=== PATIENT | male | born 1975 | race Two or more races ===

== ENCOUNTER 2017-12-17 15:43 | Outpatient (CLI) | END 2017-12-17 16:08 | disposition home or self-care (01) ==

== ENCOUNTER 2017-12-31 14:30 | Outpatient (CLI) | END 2017-12-31 16:43 | disposition home or self-care (01) ==

== ENCOUNTER 2018-10-30 11:46 | Day surgery (SDC) | payer OTHER ==
[2018-10-29 16:45] VITALS: BMI 34.8
[~2018-10-30] VITALS: Ht 167.6 cm; Wt 94.5 kg
[2018-10-30] VITALS (19 sets, daily range): BP systolic 97–130; BP diastolic 66–86; PULSE 84–100; RESP 12–32; Ht 167.6 cm; Wt 94.5 kg
[~2018-10-30 11:46] MED LIST: ALLO300T2 PO; ATOR10TA65 PO; CEFAZOLIN 2 GM/50 ML (PMX) 50 ML IVPB ONE; COLC0.6T6 PO; ERGO500013 PO; LACTATED RINGER'S 1,000 ML IV SCH; LANT3I SC; LEFL20TA18 PO; LISI10TA2 PO; METF500T24 PO; OMEP40CA6 PO; SULF1TAB31 PO; SULI200T3 PO; [UNRECOGNIZED DRUG - CODE] PO
[2018-10-30] MEDS ORDERED: HYDR-3609 ORAL (12:14)
[2018-10-30] MEDS ORDERED: INSU100I33 SC (12:14)
[2018-10-30] MEDS ORDERED: METF850T13 ORAL (12:14)
--- NOTE | 2018-10-30 12:52 | HPN ---
Date/Time of Note Date/Time of Note DATE: 10/30/18 TIME: 12:52 Interval H&P Admission Note Pt. seen H&P reviewed: No system changes GUILLERMO SALTER October 30, 2018 12:52
[2018-10-30] MEDS ORDERED: INSULIN REGULAR, HUMAN 100 UNIT/1 ML 3ML VIAL IVP STA (13:16)
[2018-10-30] MEDS ORDERED: LIDOCAINE 1% (MPF) 30 ML INJ ONE (13:42)
[2018-10-30] MEDS ORDERED: BUPIVACAINE 0.5% (SDV) 30 ML INJ ONE (13:42)
--- NOTE | 2018-10-30 14:22 | PREAC ---
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 Past Medical History Past Medical History: Includes Cardio: HTN, Dyslipidemia Endo: Diabetes, Other (Gout) Pulm: Sleep Apnea GI: Obesity Surgery & Anesthesia Issues No known issue Meds Anticoagulation: No Beta Pura within 24 hr: No Reason Beta Pura not given: Pt. not on B-Pura Reported Medications Insulin Glargine,Hum.rec.anlog (Basaglar Kwikpen U-100) 100 Unit/1 Ml Insuln.pen, 30 UNIT SC QHS 10/30/18 Hydrocodone/Acetaminophen (Hydrocodone-Acetamin 10-325 mg) 1 Each Tablet, 1 TAB ORAL Q6 PRN for PAIN LEVEL 7-10 10/30/18 Metformin Hcl* (Metformin Hcl*) 850 Mg Tablet, 1 TAB ORAL BID 10/30/18 Sulindac* (Clinoril*) 200 Mg Tablet, 200 MG PO BID, TAB 12/17/17 Leflunomide* (Leflunomide*) 20 Mg Tablet, 20 MG PO DAILY, #30 TAB 12/17/17 Colchicine* (Colcrys*) 0.6 Mg Tablet, 0.6 MG PO BID, TAB 12/17/17 Discontinued Reported Medications Omeprazole* (Omeprazole*) 40 Mg Capsule.dr, 40 MG PO DAILY, #30 CAP 12/17/17 Allopurinol* (Allopurinol*) 300 Mg Tablet, 900 MG PO DAILY, TAB 12/17/17 Probenecid* (Probenecid*) 500 Mg Tablet, 500 MG PO BID, TAB 12/17/17 Lisinopril* (Lisinopril*) 10 Mg Tablet, 10 MG PO DAILY, #30 TAB 12/17/17 Metformin Hcl* (Metformin Hcl*) 500 Mg Tablet, 500 MG PO WITH BREAKFAST DINNE, #60 TAB 12/17/17 Atorvastatin Calcium (Atorvastatin Calcium) 10 Mg Tablet, 10 MG PO QHS, #30 TAB 12/17/17 Insulin Glargine* (Lantus*) 100 Unit/Ml Soln, 30 UNIT SC QHS, #1 VIAL 12/17/17 Ergocalciferol (Vitamin D2) (VITAMIN D2) 50,000 Unit Capsule, 93705 UNIT PO weekly, CAP 12/17/17 Sulfamethoxazole/Trimethoprim* (Bactrim Ds* Tablet) 1 Each Tablet, 1 TAB PO BID for 5 Days, #10 TAB 12/17/17 Current Medications Lactated Ringer's 1,000 ml @ 25 mls/hr Q24H IV Last administered on 10/30/18at 13:25; Admin Dose 25 MLS/HR; Start 10/30/18 at 07:00 Meds reviewed: Yes Allergies Coded Allergies: No Known Allergy (Unverified , 10/30/18) Allergies Reviewed: Yes Labs/Studies Labs Reviewed: Reviewed by anesthesiologist Result Diagram: 10/30/18 1305 10/30/18 1305 Laboratory Tests 10/30/18 13:05 test: N/A Studies: ECG (n/a), CXR (n/a) Pre-procedure Exam Last vitals Vital Signs Date Temp Pulse Resp B/P (MAP) Pulse Ox O2 O2 Flow FiO2 Time Delivery Rate 10/30/18 97.5 94 16 130/86 96 Room Air 13:39 (101) Airway: Adequate mouth opening, Adequate thyromental dist Mallampati: Mallampati III Teeth: Normal Lung: Normal Heart: Normal ASA Physical Status ASA physical status: 3 Emergency: None Planned Anesthetic General/MAC: LMA Nerve block: Brachial plexus (right) Planned Pain Management Single shot nerve block, Parenteral pain med Pre-operative Attestations Prior to commencing anesthesia and surgery, the patient was re-evaluated, there was verification of: *The patient's identity *The results of appropriate recent lab work and preoperative vital signs *The above evaluation not changing prior to induction *Anesthetic plan, risk benefits, alternative and complications discussed with patient/family; questions answered; patient/family understands, accepts and wishes to proceed. GAIL WARE MD October 30, 2018 14:22
[2018-10-30] MEDS ORDERED: MIDAZOLAM 1 MG/ML 2 ML INJ ONE (14:27)
[2018-10-30] MEDS ORDERED: PROPOFOL 20 ML ONE ×2 (14:27→14:32)
[2018-10-30] MEDS ORDERED: FENTAnyl 50 MCG/ML VIAL ONE (14:27)
[2018-10-30] MEDS ORDERED: FENTAnyl 50 MCG/ML VIAL IV PRN ×3 (14:30)
[2018-10-30] MEDS ORDERED: LABETALOL HCL 20MG INJ IV PRN (14:30)
[2018-10-30] MEDS ORDERED: OXYCODONE/ACETAMINOPHEN (5/325) TAB PO PRN ×2 (14:30)
[2018-10-30] MEDS ORDERED: METOCLOPRAMIDE 10 MG INJ IV PRN (14:30)
[2018-10-30] MEDS ORDERED: HYDROmorphONE 1 MG/5 ML IV SYRINGE IV PRN ×3 (14:30)
[2018-10-30] MEDS ORDERED: DIPHENHYDRAMINE 50 MG INJ IV PRN (14:30)
[2018-10-30] MEDS ORDERED: hydrALAzine 20 MG INJ IV PRN (14:30)
[2018-10-30] MEDS ORDERED: ONDANSETRON 4 MG INJ IV PRN (14:30)
[2018-10-30] MEDS ORDERED: MEPERIDINE 25 MG INJ IV PRN (14:30)
[2018-10-30] MEDS ORDERED: EPHEDrine 25 MG/5 ML SYG IV PRN (14:30)
[2018-10-30] MEDS ORDERED: CEFAZOLIN 1 GM INJ ONE (14:32)
[2018-10-30] MEDS ORDERED: DEXAMETHASONE 4 MG/ML 5 ML INJ ONE (14:56)
[2018-10-30] MEDS ORDERED: KETOROLAC 30 MG INJ ONE (14:56)
[2018-10-30] MEDS ORDERED: ONDANSETRON 4 MG INJ ONE (14:56)
[2018-10-30] MEDS ORDERED: METOCLOPRAMIDE 10 MG INJ ONE (14:56)
--- NOTE | 2018-10-30 15:09 | PAC ---
Date/Time of Note Date/Time of Note DATE: 10/30/18 TIME: 15:08 Post-Anesthesia Notes Post-Anesthesia Note Last documented vital signs Vital Signs Date Temp Pulse Resp B/P (MAP) Pulse Ox O2 O2 Flow FiO2 Time Delivery Rate 10/30/18 98.0 94 16 130/86 96 Room Air 15:09 (101) Activity: WNL Respiratory function: WNL Cardiovascular function: WNL Mental status: Baseline Pain reasonably controlled: Yes Hydration appropriate: Yes Nausea/Vomiting absent: Yes GAIL WARE MD October 30, 2018 15:09
--- NOTE | 2018-10-30 15:21 | OPPN ---
Date/Time of Note Date/Time of Note DATE: 10/30/18 TIME: 15:20 Operative Report Preoperative Diagnosis right wrist and forearm 2nd and third dorsal compartment tenosynovitis Postoperative Diagnosis right wrist and forearm 2nd and third dorsal compartment tenosynovitis Operation/Procedure Performed right wrist and forearm 2nd and third dorsal compartment tendon sheath incision with tenosynovectomy Surgeon see signature line wet process assistant head miller none Anesthesia: general Estimated blood loss: 0 - 10 ml's Transfusion Required none Specimen right wrist tissue for culture and pathology Grafts/Implants none Complications none GUILLERMO SALTER October 30, 2018 15:21
[2018-10-30] MEDS ORDERED: INSULIN REGULAR, HUMAN 100 UNIT/1 ML 3ML VIAL SC ONE ×2 (16:30)
--- NOTE | 2018-10-30 18:02 | OPR ---
DATE OF OPERATION: 10/30/2018 SURGEON: Guillermo Levy MD. ANESTHESIA: General plus local. PREOPERATIVE DIAGNOSES: 1. Right wrist and forearm second dorsal compartment extensor tenosynovitis. 2. Right wrist and forearm third dorsal compartment extensor tenosynovitis. POSTOPERATIVE DIAGNOSIS: 1. Right wrist and forearm second dorsal compartment extensor tenosynovitis. 2. Right wrist and forearm third dorsal compartment extensor tenosynovitis. PROCEDURE: 1. Right wrist second dorsal compartment tendon sheath incision. 2. Right wrist third dorsal compartment tendon sheath incision. 3. Right wrist second dorsal compartment extensor tenosynovectomy. 4. Right wrist third dorsal compartment extensor tenosynovectomy. OPERATIVE FINDINGS: Stenosing tenosynovitis, right wrist and forearm second and third dorsal compart ments with fraying of the extensor pollicis longus tendon. INDICATION FOR PROCEDURE: A 43-year-old male with longstanding right wrist pain and swelling, who fa iled conservative measures, elected to proceed with surgical intervention, understanding the risks an d benefits. DESCRIPTION OF PROCEDURE: The patient was seen in the preoperative area and all further questions we re answered. Again, he gave informed consent, understanding risks and benefits. He was taken to ope rative suite and placed in supine position. The patient was placed under general anesthesia and Ance f 2 grams IV given. Tourniquet was placed in the right upper extremity and right upper extremity was prepped with ChloraPrep stick and draped in usual sterile fashion. Esmarch bandage was used to exsa nguinate the extremity and tourniquet inflated to 250 mmHg. A longitudinal incision over the second and third dorsal compartments was utilized with sharp dissection carried down through skin and subcut aneous tissue. Soft tissues were cleared off of the extensor retinaculum and the third dorsal compar tment tendon sheath was incised from the base of the metacarpal to the distal 3rd of the distal radiu s. There was significant tenosynovitis within the third dorsal compartment, and after tendon sheath incision, I performed an extensive tenosynovectomy of the third dorsal compartment, removing all infl rolando tenosynovium. There was fraying of the EPL tendon, but the tendon was intact. The EPL tendon w as then retracted and I incised the second dorsal compartment longitudinally decompressing it from th e distal third of the forearm to the level of the insertion of both the ECRB and ECRL tendons. After tendon sheath incision, I identified significant tenosynovitis, which was debrided and excised using tenotomy scissors and Adson forceps. After extensive tenosynovectomy, there was no further inflamed tissue in the area and the tendons were cleaned. The wound was copiously irrigated. Skin closed wi th 5-0 nylon. Xeroform was placed in the wound followed by sterile gauze, Webril, and a short arm sp lint. Tourniquet deflated after 11 minutes. The patient was awakened from anesthesia. He was taken to operative suite in stable condition and tolerated the procedure well without complication. SPECIMENS: Right wrist and forearm tenosynovium for culture and permanent pathology. ESTIMATED BLOOD LOSS: 5 mL. COUNTS: Sponge, instrument, needle counts correct. TOURNIQUET TIME: 11 minutes. CONDITION ON DISCHARGE: Stable. The patient was given a nonrefillable 5-day prescription for pain medication for surgery today. Dictated By: GUILLERMO PUTNAM/CHICHI Conf#: [id number] DID#: [id number]
== END 2018-10-30 17:00 | disposition home or self-care (01) ==
LOC: SDS 11:46
PROVIDERS: ATTEND Orthopaedic Surgery Hand Surgery
DX: M65.831 Other synovitis and tenosynovitis, right forearm (principal); I10 Essential (primary) hypertension; E11.9 Type 2 diabetes mellitus without complications; Z79.84 Long term (current) use of oral hypoglycemic drugs; Z79.4 Long term (current) use of insulin
CPT/HCPCS: 25116; 80048; 82962; 85025; 85610; 85730; 87070; 87075; 87102; J0690; J1100; J1170; J1815; J1885; J2250; J2405; J2765; J3010; Z7512; Z7610; 88307

== ENCOUNTER 2018-11-06 17:12 | Inpatient (IN) | payer OTHER ==
[~2018-11-06] VITALS: Ht 167.6 cm; Wt 92.8 kg
[~2018-11-06 17:12] MED LIST changes: -ALLO300T2 PO; -ATOR10TA65 PO; -CEFAZOLIN 2 GM/50 ML (PMX) 50 ML IVPB ONE; -ERGO500013 PO; +HYDR-3609 ORAL; +INSU100I33 SC; -LACTATED RINGER'S 1,000 ML IV SCH; -LANT3I SC; -LISI10TA2 PO; -METF500T24 PO; +METF850T13 ORAL; -OMEP40CA6 PO; -SULF1TAB31 PO; -[UNRECOGNIZED DRUG - CODE] PO
[2018-11-06 20:00] VITALS: BP 136/88; RESP 20
[2018-11-06] MEDS ORDERED: DEXTROSE 5%-0.45% NACL 1,000 ML IV SCH (20:39)
[2018-11-06] MEDS ORDERED: DOCUSATE SODIUM 100 MG CAP PO PRN (21:00)
[2018-11-06] MEDS ORDERED: BISACODYL (EC) 5 MG TAB PO PRN (21:00)
[2018-11-06] MEDS ORDERED: ACETAMINOPHEN 325 MG TAB PO PRN (21:00)
[2018-11-06] MEDS ORDERED: ONDANSETRON 4 MG INJ IV PRN (21:00)
[2018-11-06] MEDS ORDERED: NACL 0.9% 3 ML SYG IV SCH (21:00)
[2018-11-06] MEDS ORDERED: VANCOMYCIN IV PER PHARMACY XX SCH (21:00)
[2018-11-06] MEDS ORDERED: HYDROmorphONE 0.5 MG/0.5 ML SYG IV PRN (21:00)
[2018-11-06] MEDS ORDERED: GLUCOSE GEL 15 GRAM TUBE BUCCAL PRN (21:30)
[2018-11-06] MEDS ORDERED: DEXTROSE 50% 50 ML SYRINGE IV PRN ×2 (21:30)
[2018-11-06] MEDS ORDERED: GLUCAGON 1 MG INJ IM PRN (21:30)
[2018-11-06] MEDS ORDERED: GLUCOSE GEL 15 GRAM TUBE PO PRN ×2 (21:30)
--- NOTE | 2018-11-06 21:55 | HP ---
Date/Time of Note Date/Time of Note DATE: 11/06/18 TIME: 21:55 Assessment/Plan VTE Prophylaxis SCD applied (from Ns): Yes Pharmacological prophylaxis: NA/contraindicated Pharm contraindication: low risk/ambulating Assessment/Plan Hospital Course This is a 43-year-old male being admitted to the [facility] floor for: 1. Severe sepsis: Secondary to postop right wrist and forearm infection. Patient does report improvement in his right wrist hand and finger swelling after receiving antibiotics. We will continue with broad-spectrum trauma antibiotics of vancomycin and Zosyn. Will check CBC CMP and lactic acid level. Initial lactic acid at the transfer facility was above 2. Contact the transferring facility regarding culture results. 2 postop right wrist and forearm infection: Patient has surgery for right wrist and forearm second and third dorsal compartment tenosynovitis. Patient is improving with IV antibiotics. the performing surgeon has been notified and they will consult on the patient. 3 rheumatoid arthritis: We will continue anti-inflammatories, will hold leflunomide for now until resolution of infection. 4 Diabetes mellitus: We will check a hemoglobin A1c, resume patient's home insulin sliding scale regimen and Lantus 5 gout: Resume Colcrys as indicated 6 dyslipidemia: We will check lipid panel 7. Hypertension: Continue lisinopril #8 DVT GI prophylaxis: SCDs, no GI prophylaxis indicated next Further treatment strategy will be implemented as per the clinical course Results 24hrs Laboratory Tests Test 11/06/18 20:52 Bedside Glucose 273 H HPI/ROS Admit Date/Time Admit Date/Time November 06, 2018 at 20:01 Hx of Present Illness Chief complaint: Right arm pain this is a 43-year-old male who originally presented to [facility] for evaluation of worsening right wrist pain. Patient reported that he had surgery approximately a week prior to drain fluid from his tendon. Patient had originally been diagnosed with septic arthritis in June he had been seen by orthopedics at the time with more so he was cellulitis. He was given antibiotics and anti-inflammatories. He reported at that time his symptoms had not improved so his primary care doctor and send him to orthopedics. Patient was seen by hand surgeon Dr. clemente [facility] and on 10/30/2018 patient had a right wrist and forearm 2nd and third dorsal compartment tendon sheath incision with tenosynovectomy for right wrist and forearm second and third dorsal compartment tenosynovitis. At [facility] he reported that he was having 10 out of 10 pain in his right wrist and was not getting any relief from Percocet. He denied any numbness or tingling or weakness. He reports that his fingers were swollen and dark in color when he presented to the [facility]. Patient presented to [facility] with a temperature of 98.5/pulse 108/respirations 20/BP 146/103/SPO2 90% on room air. Pertinent laboratory findings please see chart for full details: White blood cells 15.5/hemoglobin 15.9/hematocrit 44.6/count 178 Sodium 131 potassium 4.4 chloride 92 CO2 23 creatinine 0.89 BUN 12 bilirubin total 1.2 Procalcitonin less than 0.10 Lactate 2.6 X-ray of the right wrist: Osseous structures are intact. There is no acute fracture dislocation. 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 Allergies: NKDA Medications: See Aug Const: As per HPI Eyes : No pain discharge or redness or change in visual acuity ENT: No pain, sore throat, congestion, congestion, dysphagia or discharge Respiratory: No shortness of breath, cough, sputum, wheezing, or pleuritic pain Cardiovascular: No chest pain, palpitation, PND, or edema GI : no change in appetite, abdominal pain, nausea, vomiting, diarrhea, constipation, or change in the color his stool Genitourinary: No dysuria, hematuria, flank pain , discharge or CVA tenderness Musculoskeletal: As per HPI Skin: As per HPI Neuro: No headache, dizziness, syncope, seizure, focal weakness Endocrine: No polyuria, polydipsia, temperature intolerance Psych: No hallucination, depression, anxiety or suicidal ideation PMH/Family/Social Past Medical History right wrist and forearm second and third dorsal compartment tenosynovitis Rheumatoid arthritis Diabetes mellitus Gout Dyslipidemia Hypertension Medications Current Medications IV Flush (NS 3 ml) 3 ml PER PROTOCOL IV ; Start 11/06/18 at 21:00 Ondansetron HCl (Zofran Inj) 4 mg Q6H PRN IV NAUSEA/VOMITING; Start 11/06/18 at 21:00 Acetaminophen (Tylenol Tab) 650 mg Q6H PRN PO .PAIN 1-3 OR TEMP Last administered on 11/06/18at 21:22; Admin Dose 650 MG; Start 11/06/18 at 21:00 Hydromorphone HCl (Dilaudid) 0.5 mg Q4H PRN IV .SEVERE PAIN 7-10; Start 11/06/18 at 21:00 Docusate Sodium (Colace) 100 mg Q12H PRN PO .CONSTIPATION; Start 11/06/18 at 21:00 Bisacodyl (Dulcolax) 5 mg DAILY PRN PO .CONSTIPATION; Start 11/06/18 at 21:00 Vancomycin HCl (Vanco Iv Per Pharmacy) VANCOMYCIN PER PHARMACY PER PROTOCOL XX ; Start 11/06/18 at 21:00 Piperacillin Sod/ Tazobactam Sod 100 ml @ 200 mls/hr Q6 IVPB ; Start 11/06/18 at 21:00 Diagnostic Test (Pha) (Accu-Chek) 1 ea 02 XX ; Start 11/07/18 at 02:00 Insulin Aspart (Novolog Insulin Pen) NOVOLOG *MILD* ALGORITHM WITH MEALS BEDTIME SC ; Start 11/06/18 at 22:00 Miscellaneous Information 1 ea NOTE XX ; Start 11/06/18 at 21:30 Glucose (Glutose) 15 gm Q15M PRN PO DECREASED GLUCOSE; Start 11/06/18 at 21:30 Glucose (Glutose) 22.5 gm Q15M PRN PO DECREASED GLUCOSE; Start 11/06/18 at 21:30 Dextrose (D50w Syringe) 25 ml Q15M PRN IV DECREASED GLUCOSE; Start 11/06/18 at 21:30 Dextrose (D50w Syringe) 50 ml Q15M PRN IV DECREASED GLUCOSE; Start 11/06/18 at 21:30 Glucagon (Glucagen) 1 mg Q15M PRN IM DECREASED GLUCOSE; Start 11/06/18 at 21:30 Glucose (Glutose) 15 gm Q15M PRN BUCCAL DECREASED GLUCOSE; Start 11/06/18 at 21:30 Vancomycin HCl 2 gm/Sodium Chloride 500 ml @ 125 mls/hr ONCE ONCE IVPB ; Start 11/06/18 at 23:00; Stop 11/07/18 at 02:59 Vancomycin HCl 1.5 gm/Sodium Chloride 250 ml @ 83.333 mls/ hr Q12H IVPB ; Start 11/07/18 at 11:00 Coded Allergies: No Known Allergy (Unverified , 10/30/18) Past Surgical History right wrist and forearm 2nd and third dorsal compartment tendon sheath incision with tenosynovectomy Family History Significant Family History: no pertinent family hx Exam/Review of Systems Vital Signs Vitals Vital Signs Date Temp Pulse Resp B/P (MAP) Pulse Ox O2 O2 Flow FiO2 Time Delivery Rate 11/06/18 102.0 21:22 11/06/18 20 136/88 98 20:00 (104) Exam Exam General: Patient is well-developed well-nourished The patient is alert oriented -3 lying comfortably in bed. HEENT: Atraumatic, normocephalic. The pupils are equal, round and reactive. Extraocular motor are intact Neck: Supple with full range of motion. No rigidity or meningismus Chest: Nontender Lungs: Clear to auscultation bilaterally no crackles rales or wheezing Heart: Normal S1-S2, Regular rhythm and rate. No murmur, S3, or S4 Abdomen: Soft , nontender, nondistended , bowel sounds are present. No guarding no rebound tenderness , No masses or organomegaly. No costovertebral temporal angle mass Extremities: Right arm mild swelling noted on the dorsal aspect, surgical scar and sutures noted at the wrist, mild tenderness to touch, no erythema noted. Dark you on the palmar aspect around the fingers (patient reports swelling and color of the fingers have improved since starting treatment) Neurologic: Normal mental status, speech normal, cranial nerves II through XII are intact, motor and sensory are intact, no focal weakness TRISTIN GUERRA November 06, 2018 21:55
[2018-11-06] MEDS: PIPER-TAZO 3.375 GM IV (PMX) 100 ML IVPB SCH (22:23)
[2018-11-06 22:26] VITALS: Ht 167.6 cm; Wt 92.8 kg
[2018-11-06] MEDS ORDERED: VANCOMYCIN HCL 2 GM in SOD CHLORIDE 0.9% 500 ML IVPB ONE (23:00)
[2018-11-06] MEDS: INSULIN ASPART [NOVOLOG] 3 ML PEN SC SCH (23:47)
[2018-11-07] MEDS ORDERED: METF-480 PO (00:17)
[2018-11-07 02:05] VITALS: BP 139/85; RESP 18
[2018-11-07] MEDS ORDERED: LISI10TA2 PO (02:21)
[2018-11-07] MEDS: ACCU-CHEK XX SCH (02:30)
[2018-11-07] MEDS: PIPER-TAZO 3.375 GM IV (PMX) 100 ML IVPB SCH ×4 (02:36→17:39)
[2018-11-07] MEDS ORDERED: INSULIN ASPART [NOVOLOG] 3 ML PEN SC ONE (03:00)
[2018-11-07] MEDS ORDERED: INSULIN GLARGINE [LANTus] (100 UNITS/ML) SYG SC ONE (04:30)
[2018-11-07] MEDS ORDERED: ACCU-CHEK XX ONE (05:00)
[2018-11-07] MEDS: INSULIN ASPART [NOVOLOG] 3 ML PEN SC SCH ×5 (08:17→21:17)
[2018-11-07] MEDS: LISINOPRIL 10 MG TAB PO SCH (08:19)
[2018-11-07] MEDS: SULINDAC 200 MG TAB PO SCH ×2 (09:26→21:14)
[2018-11-07 10:41] VITALS: BP 138/76; PULSE 95; RESP 18
[2018-11-07] MEDS: VANCOMYCIN HCL 1.5 GM in SOD CHLORIDE 0.9% 250 ML IVPB SCH ×3 (11:00→23:52)
[2018-11-07 14:30] VITALS: BP 115/68; PULSE 103; RESP 18
--- NOTE | 2018-11-07 15:02 | PN ---
Date/Time of Note Date/Time of Note DATE: 11/07/18 TIME: 14:56 Assessment/Plan VTE Prophylaxis Risk score (from Ns)>0 risk: 4 SCD applied (from Ns): Yes Pharmacological prophylaxis: NA/contraindicated Pharm contraindication: low risk/ambulating Lines/Catheters IV Catheter Type (from [facility]): [facility] Assessment/Plan Hospital Course 1. Severe sepsis: Secondary to postop right wrist and forearm infection Patient does report improvement in his right wrist hand and finger swelling after receiving antibiotics. Continue broad-spectrum trauma antibiotics of vancomycin and Zosyn, Initial lactic acid at the transfer facility was above Contact the transferring facility regarding culture results. 2. Postop right wrist and forearm infection: Patient has surgery for right wrist and forearm second and third dorsal compartment tenosynovitis. Patient is improving with IV antibiotics. the performing surgeon has been notified and they will consult on the patient ID consultation also obtained 3. Rheumatoid arthritis: We will continue anti-inflammatories, will hold leflu nomide for now until resolution of infection. 4 Diabetes mellitus-OOC A1c 12.8 Continue Lantus and sliding scale, add NovoLog 10 units with meals coding educator consultation 5. Gout Resume Colcrys as indicated 6. Dyslipidemia Lipid panel within normal limits except for triglyceride which is elevated 7. Hypertension Continue lisinopril DVT GI prophylaxis: SCDs DC planning: Follow-up on ID and surgery recommendations, continue IV antibiotics Result Diagram: 11/07/18 0602 11/07/18 0602 Results 24hrs Laboratory Tests Test 11/06/18 20:52 11/06/18 21:32 11/06/18 23:44 11/07/18 02:30 Bedside Glucose 273 H 334 H 300 H White Blood Count 18.0 #H Red Blood Count 5.13 Hemoglobin 14.3 Hematocrit 40.9 L Mean Corpuscular 79.7 L Volume Mean Corpuscular 27.9 L Hemoglobin Mean Corpuscular 35.0 Hemoglobin Concent Red Cell 12.5 Distribution Width Platelet Count 193 Mean Platelet Volume 10.9 H Immature 1.100 H Granulocytes % Neutrophils % Segmented 84 H Neutrophils % (Manual) Band Neutrophils % 3 (Manual) Lymphocytes % Lymphocytes % 7 L (Manual) Reactive Lymphocytes 1 H % (Manual) Monocytes % Monocytes % (Manual) 4 Eosinophils % Eosinophils % 1 (Manual) Basophils % Nucleated Red Blood 0.0 Cells % Immature 0.190 H Granulocytes # Neutrophils # Neutrophils # 15.2 H (Manual) Band Neutrophils # 0.5 Lymphocytes (Manual) 1.2 Lymphocytes # Reactive Lymphocytes 0.1 H # Monocytes # Monocytes # (Manual) 0.7 Eosinophils # Basophils # Nucleated Red Blood Cells # Platelet Estimate NORMAL Platelet Morphology @See below Comment Polychromasia 1+ Anisocytosis 3+ Microcytosis 3+ Sodium Level 133 L Potassium Level 4.7 Chloride Level 101 Carbon Dioxide Level 21 Anion Gap 11 Blood Urea Nitrogen 14 Creatinine 0.92 Est Glomerular > 60 Filtrat Rate mL/min Glucose Level 312 H Lactic Acid Level 1.2 Calcium Level 9.1 Total Bilirubin 1.6 H Direct Bilirubin 0.00 Indirect Bilirubin 1.6 H Aspartate Amino 22 Transf (AST/SGOT) Alanine 18 Aminotransferase (AL T/SGPT) Alkaline Phosphatase 79 Total Protein 6.6 Albumin 4.0 Globulin 2.60 Albumin/Globulin 1.53 Ratio Test 11/07/18 05:20 11/07/18 06:02 11/07/18 08:12 11/07/18 11:58 Bedside Glucose 305 H 281 H 338 H White Blood Count 11.1 #H Red Blood Count 4.97 Hemoglobin 14.0 Hematocrit 40.0 L Mean Corpuscular 80.5 L Volume Mean Corpuscular 28.2 L Hemoglobin Mean Corpuscular 35.0 Hemoglobin Concent Red Cell 12.6 Distribution Width Platelet Count 186 Mean Platelet Volume 10.7 H Immature 0.800 H Granulocytes % Neutrophils % 69.4 Lymphocytes % 15.5 Monocytes % 12.6 H Eosinophils % 1.2 Basophils % 0.5 Nucleated Red Blood 0.0 Cells % Immature 0.090 H Granulocytes # Neutrophils # 7.7 H Lymphocytes # 1.7 Monocytes # 1.4 H Eosinophils # 0.1 Basophils # 0.1 Nucleated Red Blood 0.0 Cells # Prothrombin Time 14.0 Prothrombin Time 1.1 Ratio INR International 1.07 Normalized Ratio Activated 36.1 H Partial Thromboplast Time Sodium Level 135 Potassium Level 4.3 Chloride Level 102 Carbon Dioxide Level 25 Anion Gap 8 Blood Urea Nitrogen 15 Creatinine 0.89 Est Glomerular > 60 Filtrat Rate mL/min Glucose Level 309 H Hemoglobin A1c 12.8 H Calcium Level 9.0 Magnesium Level 1.9 Total Bilirubin 1.6 H Direct Bilirubin 0.00 Indirect Bilirubin 1.6 H Aspartate Amino 19 Transf (AST/SGOT) Alanine 18 Aminotransferase (AL T/SGPT) Alkaline Phosphatase 68 Total Protein 6.7 Albumin 3.8 Globulin 2.90 Albumin/Globulin 1.31 Ratio Triglycerides Level 319 H Cholesterol Level 155 LDL Cholesterol, 60 Calculated HDL Cholesterol 31 Cholesterol/HDL 5.0 Ratio Thyroid Stimulating 1.070 Hormone (TSH) Subjective 24 Hr Interval Summary Constitutional: no complaints Exam/Review of Systems Exam Vitals Vital Signs Date Temp Pulse Resp B/P (MAP) Pulse Ox O2 O2 Flow FiO2 Time Delivery Rate 11/07/18 98.5 103 18 115/68 98 Room Air 14:30 (84) Intake and Output 11/06/18 11/06/18 11/07/18 1515:00 23:00 07:00 IntakeIntake Total 800 ml BalanceBalance 800 ml Constitutional: alert, oriented Respiratory: clear to auscultation Cardiovascular: regular rate and rhythm Gastrointestinal: soft; No distended Musculoskeletal: No nl extremities to inspection Results Results 24hrs Laboratory Tests Test 11/06/18 20:52 11/06/18 21:32 11/06/18 23:44 11/07/18 02:30 Bedside Glucose 273 H 334 H 300 H White Blood Count 18.0 #H Red Blood Count 5.13 Hemoglobin 14.3 Hematocrit 40.9 L Mean Corpuscular 79.7 L Volume Mean Corpuscular 27.9 L Hemoglobin Mean Corpuscular 35.0 Hemoglobin Concent Red Cell 12.5 Distribution Width Platelet Count 193 Mean Platelet Volume 10.9 H Immature 1.100 H Granulocytes % Neutrophils % Segmented 84 H Neutrophils % (Manual) Band Neutrophils % 3 (Manual) Lymphocytes % Lymphocytes % 7 L (Manual) Reactive Lymphocytes 1 H % (Manual) Monocytes % Monocytes % (Manual) 4 Eosinophils % Eosinophils % 1 (Manual) Basophils % Nucleated Red Blood 0.0 Cells % Immature 0.190 H Granulocytes # Neutrophils # Neutrophils # 15.2 H (Manual) Band Neutrophils # 0.5 Lymphocytes (Manual) 1.2 Lymphocytes # Reactive Lymphocytes 0.1 H # Monocytes # Monocytes # (Manual) 0.7 Eosinophils # Basophils # Nucleated Red Blood Cells # Platelet Estimate NORMAL Platelet Morphology @See below Comment Polychromasia 1+ Anisocytosis 3+ Microcytosis 3+ Sodium Level 133 L Potassium Level 4.7 Chloride Level 101 Carbon Dioxide Level 21 Anion Gap 11 Blood Urea Nitrogen 14 Creatinine 0.92 Est Glomerular > 60 Filtrat Rate mL/min Glucose Level 312 H Lactic Acid Level 1.2 Calcium Level 9.1 Total Bilirubin 1.6 H Direct Bilirubin 0.00 Indirect Bilirubin 1.6 H Aspartate Amino 22 Transf (AST/SGOT) Alanine 18 Aminotransferase (AL T/SGPT) Alkaline Phosphatase 79 Total Protein 6.6 Albumin 4.0 Globulin 2.60 Albumin/Globulin 1.53 Ratio Test 11/07/18 05:20 11/07/18 06:02 11/07/18 08:12 11/07/18 11:58 Bedside Glucose 305 H 281 H 338 H White Blood Count 11.1 #H Red Blood Count 4.97 Hemoglobin 14.0 Hematocrit 40.0 L Mean Corpuscular 80.5 L Volume Mean Corpuscular 28.2 L Hemoglobin Mean Corpuscular 35.0 Hemoglobin Concent Red Cell 12.6 Distribution Width Platelet Count 186 Mean Platelet Volume 10.7 H Immature 0.800 H Granulocytes % Neutrophils % 69.4 Lymphocytes % 15.5 Monocytes % 12.6 H Eosinophils % 1.2 Basophils % 0.5 Nucleated Red Blood 0.0 Cells % Immature 0.090 H Granulocytes # Neutrophils # 7.7 H Lymphocytes # 1.7 Monocytes # 1.4 H Eosinophils # 0.1 Basophils # 0.1 Nucleated Red Blood 0.0 Cells # Prothrombin Time 14.0 Prothrombin Time 1.1 Ratio INR International 1.07 Normalized Ratio Activated 36.1 H Partial Thromboplast Time Sodium Level 135 Potassium Level 4.3 Chloride Level 102 Carbon Dioxide Level 25 Anion Gap 8 Blood Urea Nitrogen 15 Creatinine 0.89 Est Glomerular > 60 Filtrat Rate mL/min Glucose Level 309 H Hemoglobin A1c 12.8 H Calcium Level 9.0 Magnesium Level 1.9 Total Bilirubin 1.6 H Direct Bilirubin 0.00 Indirect Bilirubin 1.6 H Aspartate Amino 19 Transf (AST/SGOT) Alanine 18 Aminotransferase (AL T/SGPT) Alkaline Phosphatase 68 Total Protein 6.7 Albumin 3.8 Globulin 2.90 Albumin/Globulin 1.31 Ratio Triglycerides Level 319 H Cholesterol Level 155 LDL Cholesterol, 60 Calculated HDL Cholesterol 31 Cholesterol/HDL 5.0 Ratio Thyroid Stimulating 1.070 Hormone (TSH) Medications Medication Current Medications IV Flush (NS 3 ml) 3 ml PER PROTOCOL IV ; Start 11/06/18 at 21:00 Ondansetron HCl (Zofran Inj) 4 mg Q6H PRN IV NAUSEA/VOMITING; Start 11/06/18 at 21:00 Acetaminophen (Tylenol Tab) 650 mg Q6H PRN PO .PAIN 1-3 OR TEMP Last adm inistered on 11/06/18at 21:22; Admin Dose 650 MG; Start 11/06/18 at 21:00 Hydromorphone HCl (Dilaudid) 0.5 mg Q4H PRN IV .SEVERE PAIN 7-10; Start 11/06/18 at 21:00 Docusate Sodium (Colace) 100 mg Q12H PRN PO .CONSTIPATION; Start 11/06/18 at 21:00 Bisacodyl (Dulcolax) 5 mg DAILY PRN PO .CONSTIPATION; Start 11/06/18 at 21:00 Vancomycin HCl (Vanco Iv Per Pharmacy) VANCOMYCIN PER PHARMACY PER PROTOCOL XX ; Start 11/06/18 at 21:00 Piperacillin Sod/ Tazobactam Sod 100 ml @ 200 mls/hr Q6 IVPB Last administered on 11/07/18at 14:28; Admin Dose 200 MLS/HR; Start 11/06/18 at 21:00 Diagnostic Test (Pha) (Accu-Chek) 1 ea 02 XX Last administered on 11/07/18at 02:30; Admin Dose 1 EA; Start 11/07/18 at 02:00 Insulin Aspart (Novolog Insulin Pen) NOVOLOG *MILD* ALGORITHM WITH MEALS BEDTIME SC Last administered on 11/07/18at 12:00; Admin Dose 5 UNIT; Start 11/06/18 at 22:00 Miscellaneous Information 1 ea NOTE XX ; Start 11/06/18 at 21:30 Glucose (Glutose) 15 gm Q15M PRN PO DECREASED GLUCOSE; Start 11/06/18 at 21:30 Glucose (Glutose) 22.5 gm Q15M PRN PO DECREASED GLUCOSE; Start 11/06/18 at 21:30 Dextrose (D50w Syringe) 25 ml Q15M PRN IV DECREASED GLUCOSE; Start 11/06/18 at 21:30 Dextrose (D50w Syringe) 50 ml Q15M PRN IV DECREASED GLUCOSE; Start 11/06/18 at 21:30 Glucagon (Glucagen) 1 mg Q15M PRN IM DECREASED GLUCOSE; Start 11/06/18 at 21:30 Glucose (Glutose) 15 gm Q15M PRN BUCCAL DECREASED GLUCOSE; Start 11/06/18 at 21:30 Vancomycin HCl 1.5 gm/Sodium Chloride 250 ml @ 83.333 mls/ hr Q12H IVPB Last administered on 11/07/18at 11:56; Admin Dose 83.333 MLS/HR; Start 11/07/18 at 11:00 Insulin Glargine (Lantus) 30 units QHS SC ; Start 11/07/18 at 21:00 Lisinopril (Zestril) 10 mg DAILY PO Last administered on 11/07/18at 08:19; Admin Dose 10 MG; Start 11/07/18 at 09:00 Sulindac (Clinoril) 200 mg BID PO Last administered on 11/07/18at 09:26; Admin Dose 200 MG; Start 11/07/18 at 09:00 Miscellaneous Information (*Rx Drug Level Order Reminder*) 1 1000 ONCE XX ; Start 11/08/18 at 10:00; Stop 11/08/18 at 10:01 ANNETTE SLOAN November 07, 2018 15:02
--- NOTE | 2018-11-07 18:14 | CONS ---
DATE OF ADMISSION: 11/06/2018 DATE OF CONSULTATION: 11/07/2018 TYPE OF CONSULTATION: Infectious Disease. REASON FOR CONSULTATION: Antibiotic management. HISTORY OF PRESENT ILLNESS: Logan Groves is a 43-year-old male who was admitted to [facility] for possible severe sepsis secondary to postop right wrist and forearm infection. The patient had chief complaint of right arm pain. He was seen at [facility] for worsening of right w rist pain. He had surgery approximately a week prior to admission with drainage of fluid from the te ndon on the dorsal aspect of his right forearm. He was diagnosed with septic arthritis in June. He has been seen by orthopedics at that time and felt that he had cellulitis and was given antibiotic s and anti-inflammatories. His symptoms did not improve, so his primary care doctor sent him to [id number] her orthopedist. He was seen by hand surgeon, Dr. Levy, and on 10/30/2018, had a right wrist and fo rearm surgery in the second and third dorsal compartment tendon sheath incision and tenosynovectomy f or right wrist and right forearm tenosynovitis. He presented again to [facility] with incre asing pain in his right wrist and inability to move it. He was then transferred to [facility]. His white count was 15.5, hemoglobin 15.9, hematocrit 44.6, platelet count 178. BUN and creatin ine was 12/0.89. X-ray right wrist showed no acute fractures or dislocations. He had osteoarthritis , dorsal wrist and swelling of his hand. Presently, however, his symptoms have abated and he is feel ing more comfortable, is able to move his hands. He was placed on vancomycin and Zosyn. His white c ount 7.1, H and H of 14 and 40, platelet count 186,000. BUN and creatinine 15/0.89 and glucose of 30 9. The patient has a history of rheumatoid arthritis and also gout. He has high blood pressure, gustavo betes and obesity. He is 5 feet 6 inches, weighs 225 pounds. He is on Lantus insulin and NovoLog fo r his diabetes. PHYSICAL EXAMINATION: GENERAL: He is alert, responsive, in no acute distress. VITAL SIGNS: Stable. He is afebrile. SKIN: Without generalized rash. HEENT: Within normal limits. NECK: Supple. LYMPH NODES: None palpable. LUNGS: Clear to P and A. HEART: Without murmur or gallop. ABDOMEN: Soft, nontender, without organosplenomegaly or masses. EXTREMITIES: The right wrist sutures are clean and there is no evidence of erythema or induration. He is able to move his hand without any difficulty. RECTAL AND GENITAL: Deferred. NEUROLOGIC: No focal neurological abnormality. IMPRESSION AND PLAN: The patient is on vancomycin and Zosyn. We will continue him on current therap y for the time being. He is to be seen, I think Dr. Levy, his surgeon, I will dictate my findings t o him; and to also Dr. Godinez. Dictated By: AYLEEN ORNELAS MD, JD/CHICHI Conf#: [id number] DID#: [id number]
--- NOTE | 2018-11-07 19:14 | EN ---
Date/Time of Note Date/Time of Note DATE: 11/07/18 TIME: 19:13 Event Note Surgery Surgery Event Note patient was seen as inpatient for concern of wrist and hand infection. Wrist and hand look remarkably better today. Recommend continue IV antibiotics and possible discharge home on oral antibiotics tomorrow. F/u as scheduled. Thank you for your excellent care of this patient GUILLERMO SALTER November 07, 2018 19:14
[2018-11-07 20:01] VITALS: BP 114/70; PULSE 101; RESP 18
[2018-11-07] MEDS ORDERED: INSULIN GLARGINE [LANTus] (100 UNITS/ML) SYG SC SCH (21:00)
[2018-11-08] MEDS: PIPER-TAZO 3.375 GM IV (PMX) 100 ML IVPB SCH ×2 (01:28→05:42)
[2018-11-08 02:12] VITALS: BP 112/68; PULSE 89; RESP 18
[2018-11-08] MEDS: ACCU-CHEK XX SCH (02:45)
[2018-11-08 08:06] VITALS: BP 113/69; PULSE 77; RESP 16
[2018-11-08] MEDS: INSULIN ASPART [NOVOLOG] 3 ML PEN SC SCH ×4 (08:22→12:04)
[2018-11-08] MEDS: SULINDAC 200 MG TAB PO SCH (08:23)
[2018-11-08] MEDS: LISINOPRIL 10 MG TAB PO SCH (08:23)
[2018-11-08] MEDS: VANCOMYCIN HCL 1.5 GM in SOD CHLORIDE 0.9% 250 ML IVPB SCH (11:40)
--- NOTE | 2018-11-08 11:41 | PDOCDIS ---
Discharge Instructions DIAGNOSIS Discharge Diagnosis 1. Severe sepsis: Secondary to postop right wrist and forearm infection 2. Postop right wrist and forearm infection 3. Rheumatoid arthritis 4 Diabetes mellitus-OOC A1c 12.8 5. Gout 6. Dyslipidemia 7. Hypertension CONDITION [id number] Patient Condition: [id number] Stable HOME CARE INSTRUCTIONS: [id number] Special Diet: [id number] carbohydrate controlled FOLLOW UP/APPOINTMENTS Follow-up Plan 1. Follow up with Dr. Victor Hugo Levy in one week Office Address [address] [place] [id number] Office DIAN GROVER NP Nov 08, 2018 11:41
[2018-11-08] MEDS ORDERED: INSU100I33 SC (11:44)
--- NOTE | 2018-11-08 13:44 | CONS ---
Assessment/Plan Assessment/Plan Hospital Course (Demo Recall) Patient is alert feels good wants to go home no fevers overnight right upper extremity looks better, no drainage at the incision WBC 9.2 neutrophils 66.4 BUN 15 creatinine 0.86 Antimicrobials: Vancomycin, Zosyn Physical examination well-developed middle-aged man who is alert in no distress. Head atraumatic normocephalic neck is supple chest rise symmetrical breath sounds diminished bases heart S1-S2 abdomen soft bowel sounds present extremities with right forearm slight swelling incision with sutures no drainage no erythema Assessment: Right forearm cellulitis status post surgery, resolving Bacteremia, consistent with contaminant Per hand surgery recommendations patient is okay to be discharged on oral antibiotics. Recommend to send him home on oral Levaquin and Bactrim and follow with hand surgery in the office Consultation Date/Type/Reason Admit Date/Time November 06, 2018 at 20:01 Initial Consult Date Type of Consult id Date/Time of Note DATE: 11/08/18 TIME: 13:43 Exam/Review of Systems Exam Vitals Vital Signs Date Temp Pulse Resp B/P (MAP) Pulse Ox O2 O2 Flow FiO2 Time Delivery Rate 11/08/18 97.7 77 16 113/69 99 08:06 (84) 11/07/18 Room Air 14:30 Intake and Output 11/07/18 11/07/18 11/08/18 1414:59 22:59 06:59 IntakeIntake Total 350 ml 100 ml 1350 ml BalanceBalance 350 ml 100 ml 1350 ml Results Result Diagram: 11/08/18 0550 11/08/18 0550 Results 24hrs Laboratory Tests Test 11/07/18 17:25 11/07/18 20:49 11/08/18 02:45 11/08/18 05:50 Bedside Glucose 390 H 247 H 260 H White Blood Count 9.2 Red Blood Count 4.78 Hemoglobin 13.3 L Hematocrit 38.9 L Mean Corpuscular 81.4 L Volume Mean Corpuscular 27.8 L Hemoglobin Mean Corpuscular 34.2 Hemoglobin Concent Red Cell Distribution 12.6 Width Platelet Count 183 Mean Platelet Volume 10.7 H Immature Granulocytes 0.900 H % Neutrophils % 66.4 Lymphocytes % 19.3 Monocytes % 9.7 Eosinophils % 3.2 Basophils % 0.5 Nucleated Red Blood 0.0 Cells % Immature Granulocytes 0.080 H # Neutrophils # 6.1 Lymphocytes # 1.8 Monocytes # 0.9 Eosinophils # 0.3 Basophils # 0.1 Nucleated Red Blood 0.0 Cells # Sodium Level 139 Potassium Level 4.1 Chloride Level 107 Carbon Dioxide Level 23 Anion Gap 9 Blood Urea Nitrogen 15 Creatinine 0.86 Est Glomerular Filtrat > 60 Rate mL/min Glucose Level 266 H Calcium Level 8.5 Test 11/08/18 07:58 11/08/18 10:01 11/08/18 12:02 Bedside Glucose 266 H 242 H Vancomycin Level 11.6 Trough Medications Medication Current Medications IV Flush (NS 3 ml) 3 ml PER PROTOCOL IV ; Start 11/06/18 at 21:00 Ondansetron HCl (Zofran Inj) 4 mg Q6H PRN IV NAUSEA/VOMITING; Start 11/06/18 at 21:00 Acetaminophen (Tylenol Tab) 650 mg Q6H PRN PO .PAIN 1-3 OR TEMP Last administered on 11/06/18at 21:22; Admin Dose 650 MG; Start 11/06/18 at 21:00 Hydromorphone HCl (Dilaudid) 0.5 mg Q4H PRN IV .SEVERE PAIN 7-10; Start 11/06/18 at 21:00 Docusate Sodium (Colace) 100 mg Q12H PRN PO .CONSTIPATION; Start 11/06/18 at 21:00 Bisacodyl (Dulcolax) 5 mg DAILY PRN PO .CONSTIPATION; Start 11/06/18 at 21:00 Vancomycin HCl (Vanco Iv Per Pharmacy) VANCOMYCIN PER PHARMACY PER PROTOCOL XX ; Start 11/06/18 at 21:00 Piperacillin Sod/ Tazobactam Sod 100 ml @ 200 mls/hr Q6 IVPB Last administered on 11/08/18at 05:42; Admin Dose 200 MLS/HR; Start 11/06/18 at 21:00 Diagnostic Test (Pha) (Accu-Chek) 1 ea 02 XX Last administered on 11/08/18at 02:45; Admin Dose 1 EA; Start 11/07/18 at 02:00 Insulin Aspart (Novolog Insulin Pen) NOVOLOG *MILD* ALGORITHM WITH MEALS BEDTIME SC Last administered on 11/08/18at 12:04; Admin Dose 3 UNIT; Start 11/06/18 at 22:00 Miscellaneous Information 1 ea NOTE XX ; Start 11/06/18 at 21:30 Glucose (Glutose) 15 gm Q15M PRN PO DECREASED GLUCOSE; Start 11/06/18 at 21:30 Glucose (Glutose) 22.5 gm Q15M PRN PO DECREASED GLUCOSE; Start 11/06/18 at 21:30 Dextrose (D50w Syringe) 25 ml Q15M PRN IV DECREASED GLUCOSE; Start 11/06/18 at 21:30 Dextrose (D50w Syringe) 50 ml Q15M PRN IV DECREASED GLUCOSE; Start 11/06/18 at 21:30 Glucagon (Glucagen) 1 mg Q15M PRN IM DECREASED GLUCOSE; Start 11/06/18 at 21:30 Glucose (Glutose) 15 gm Q15M PRN BUCCAL DECREASED GLUCOSE; Start 11/06/18 at 21:30 Vancomycin HCl 1.5 gm/Sodium Chloride 250 ml @ 83.333 mls/ hr Q12H IVPB Last administered on 11/08/18at 11:40; Admin Dose 83.333 MLS/HR; Start 11/07/18 at 11:00 Insulin Glargine (Lantus) 30 units QHS SC Last administered on 11/07/18at 21:16; Admin Dose 30 UNITS; Start 11/07/18 at 21:00 Lisinopril (Zestril) 10 mg DAILY PO Last administered on 11/08/18at 08:23; Admin Dose 10 MG; Start 11/07/18 at 09:00 Sulindac (Clinoril) 200 mg BID PO Last administered on 11/08/18at 08:23; Admin Dose 200 MG; Start 11/07/18 at 09:00 Insulin Aspart (Novolog Insulin Pen) 10 unit WITH MEALS SC Last administered on 11/08/18at 12:03; Admin Dose 10 UNIT; Start 11/07/18 at 17:35 JUDAH LOBO NP Nov 08, 2018 13:44
[2018-11-08] MEDS ORDERED: SULF1TAB31 PO (13:53)
[2018-11-08] MEDS ORDERED: CIPR500T4 PO (13:53)
[2018-11-08] MEDS ORDERED: SACC250C PO (13:53)
[2018-11-08 14:28] VITALS: BP 99/56; PULSE 86; RESP 18
--- NOTE | 2018-11-08 20:07 | DS ---
Date/Time of Note Date/Time of Note DATE: 11/08/18 TIME: 19:59 Discharge Summary Admission/Discharge Info Admit Date/Time November 06, 2018 at 20:01 Discharge Date/Time Nov 08, 2018 at 15:00 Discharge Diagnosis 1. Severe sepsis: Secondary to postop right wrist and forearm infection 2. Postop right wrist and forearm infection 3. Rheumatoid arthritis 4 Diabetes mellitus-OOC A1c 12.8 5. Gout 6. Dyslipidemia 7. Hypertension Patient Condition: Stable Consults 1. Dr. Victor Hugo Bruce 2. Dr. Jarek Atwood Hospital Course This is a 43-year-old male s/p recent surgery for right wrist forearm infection who came to the hospital for worsening swelling on right forearm status post surgery. Patient was found to be septic. Patient was seen by infectious disease physician and placed on appropriate abx. Patient was also seen by his surgeon Dr. Bruce while in the hospital. No furtther plan for surgery while in the hospital. Patient did have excellent response to abx treatment. During his course of stay he did improve. He was otherwise optimized medically with anti- inflammatories for his arthritis and insulin for his diabetes. We continued him on his antihypertensives for his high blood pressure as well. Patient was adv ised for outpatient follow-up with his surgeon and provided antibiotics upon discharge. Plan of care was discussed with the patient and patient verbalized understanding. On the day of discharge patient was in stable condition Discussed plan of care with Dr. Blancas [facility] Active Scripts Saccharomyces Boulardii* (Florastor*) 250 Mg Cap, 500 MG PO BID, #14 CAP Prov:DIAN GROVER NP 11/08/18 Ciprofloxacin Hcl* (Ciprofloxacin Hcl*) 500 Mg Tablet, 500 MG PO BID, #14 TAB Prov:DIAN GROVER NP 11/08/18 Sulfamethoxazole/Trimethoprim* (Bactrim Ds* Tablet) 1 Each Tablet, 1 TAB PO BID, #14 TAB Prov:DIAN GROVER NP 11/08/18 Insulin Glargine,Hum.rec.anlog (Basaglar Kwikpen U-100) 100 Unit/1 Ml Insuln.pen, 36 UNIT SC QHS, #1 SYR Prov:DIAN GROVER NP 11/08/18 Reported Medications Lisinopril* (Lisinopril*) 10 Mg Tablet, 10 MG PO DAILY, #30 TAB 11/07/18 Metformin* (Glucophage*) 850 Mg Tablet, 850 MG PO WITH BREAKFAST DINNE, #30 TAB 11/07/18 Hydrocodone/Acetaminophen (Hydrocodone-Acetamin 10-325 mg) 1 Each Tablet, 1 TAB ORAL Q6 PRN for PAIN LEVEL 7-10 10/30/18 Metformin Hcl* (Metformin Hcl*) 850 Mg Tablet, 1 TAB ORAL BID 10/30/18 Sulindac* (Clinoril*) 200 Mg Tablet, 200 MG PO BID, TAB 12/17/17 Leflunomide* (Leflunomide*) 20 Mg Tablet, 20 MG PO DAILY, #30 TAB 12/17/17 Colchicine* (Colcrys*) 0.6 Mg Tablet, 0.6 MG PO BID, TAB 12/17/17 Follow-up Plan 1. Follow up with Dr. Victor Hugo Bruce in one week Office Address [address] [place] [address] Office Primary Care Provider Not On Staff Doctor Time spent on discharge: > 30 minutes Pending Labs Laboratory Tests Test 11/07/18 20:49 11/08/18 02:45 11/08/18 05:50 11/08/18 07:58 Bedside 247 260 266 Glucose mg/dL (70-220) mg/dL (70-220) mg/dL (70-220) White Blood 9.2 Count 10^3/ul (4.8-1 0.8) Red Blood 4.78 Count 10^6/ul (4.70- 6.10) Hemoglobin 13.3 g/dl (14.0-18. 0) Hematocrit 38.9 % (42.0-52.0) Mean 81.4 Corpuscular fl (82.0-101.0 Volume ) Mean 27.8 Corpuscular pg (29.0-33.0) Hemoglobin Mean 34.2 Corpuscular g/dl (32.0-37. Hemoglobin Conc 0) ent Red Cell 12.6 Distribution % (11.5-14.5) Width Platelet Count 183 10^3/UL (140-4 15) Mean Platelet 10.7 Volume fl (7.4-10.4) Immature 0.900 Granulocytes % % (0.001-0.429 ) Neutrophils % 66.4 % (39.0-77.0) Lymphocytes % 19.3 % (15.0-51.0) Monocytes % 9.7 % (0.0-11.0) Eosinophils % 3.2 % (0.0-7.0) Basophils % 0.5 % (0.0-2.0) Nucleated Red 0.0 Blood Cells % /100WBC (0.0-0 .0) Immature 0.080 Granulocytes # 10^3/ul (0.0-0 .031) Neutrophils # 6.1 10^3/ul (1.6-7 .5) Lymphocytes # 1.8 10^3/ul (0.8-2 .9) Monocytes # 0.9 10^3/ul (0.3-0 .9) Eosinophils # 0.3 10^3/ul (0.0-0 .5) Basophils # 0.1 10^3/ul (0.0-0 .1) Nucleated Red 0.0 Blood Cells # 10^3/ul (0.0-0 .0) Sodium Level 139 mmol/L (135-14 4) Potassium 4.1 Level mmol/L (3.5-5. 1) Chloride Level 107 mmol/L (97-110 ) Carbon Dioxide 23 Level mmol/L (21-31) Anion Gap 9 (5-13) Blood Urea 15 Nitrogen mg/dl (7-20) Creatinine 0.86 mg/dl (0.61-1. 24) Est Glomerular > 60 Filtrat mL/min (>60) Rate mL/min Glucose Level 266 mg/dl (70-220) Calcium Level 8.5 mg/dl (8.4-10. 2) Test 11/08/18 10:01 11/08/18 12:02 Vancomycin 11.6 Level Trough ug/ml (10.0-20. 0) Bedside 242 Glucose mg/dL (70-220) DIAN GROVER NP Nov 08, 2018 20:07
== END 2018-11-08 15:00 | disposition home or self-care (01) | DRG 862 ==
LOC: UNDOADMIN 17:12 → PP2 17:12
PROVIDERS: ADMIT Internal Medicine; ATTEND Internal Medicine
DX: T81.49XA Infection following a procedure, other surgical site, initial encounter (principal); R65.20 Severe sepsis without septic shock; T81.44XA Sepsis following a procedure, initial encounter; M06.9 Rheumatoid arthritis, unspecified; E11.9 Type 2 diabetes mellitus without complications; M10.9 Gout, unspecified; E78.5 Hyperlipidemia, unspecified; I10 Essential (primary) hypertension; Z79.4 Long term (current) use of insulin; Y83.8 Other surgical procedures as the cause of abnormal reaction of the patient, or of later complication, without mention of misadventure at the time of the procedure
CPT/HCPCS: 80048; 80053; 80061; 80202; 82962; 83036; 83605; 83735; 84443; 85025; 85610; 85730; J1815; J2543; J3370; J7040; J7042; J7050